=== PATIENT | male | born 1980 | race Caucasian/White ===

== ENCOUNTER 2017-02-22 18:20 | Emergency (ER) | payer OTHER ==
--- NOTE | 2017-02-22 18:40 | ERNOTE ---
Head Injury HPI - General Injury to: head Time Seen by Provider: 02/22/17 18:20 Source: patient Exam Limitations: no limitations - Immun/Allergies/Home Medications Allergies/Adverse Reactions: Allergies Allergy/AdvReac Type Severity Reaction Status Date / Time Penicillins Allergy Verified 02/22/17 18:30 Home Medications: HOME MEDICATIONS Metoprolol Succinate 5 mg PO DAILY 02/22/17 [Last Taken Unknown] Omeprazole 10 mg PO DAILY 02/22/17 [Last Taken Unknown] - History of Present Illness Narrative: Patient was putting two horses away when they started to act up as he was in the middle. He got knocked over and fell on his face in the dirt and the horse kicked him in the back of the head. He was dazed but did not loose consciousness , was able to get up, calm the horses down and ambulated into the ER, no other injury. He rates his headache at 5/10, no nausea, no dizziness Occurred: just prior to arrival Location Occurred: home Head Injury Location: occipital Method of Injury: Reports: direct blow Loss of Consciousness: Reports: no loss of consciousness, dazed Associated Symptoms: Reports: denies symptoms Review of Systems - Review of Systems Constitutional: Absent: recent illness, fever Respiratory: Absent: shortness of breath Cardiology: Absent: chest pain Gastrointestinal/Abdominal: Absent: nausea, vomiting, abdominal pain Musculoskeletal: Absent: back pain, neck pain Neurological: Present: headache. Absent: weakness, numbness - Patient's Past Medical History Patient History - Medical: GERD Patient History - Cardiac/Respiratory: Hypertension Patient History - Cancer: No Hx of Cancer Patient History - Surgical Procedures: No surgical history Patient History - Other: None - Social History Living Situations: home Abuse History: No History of abuse Psych History: No pertinent hx Does anyone smoke in the home?: No Smoking Status: Never smoker Alcohol Use: rarely Drug Use: none - Immunizations Immunizations Up to Date: Yes Physical Exam - Physical Exam General Appearance: Present: wd/wn, alert, no apparent distress Eye Exam: Normal inspection: bilateral, PERRL: bilateral Ears, Nose, Throat: Present: normal ENT inspection, other - minimal abrasion and contusion above right eyebrow, no other signs of facial injry, no bony tenderness, over occiput lare curved laceration and underlying hematoma Neck: Present: normal inspection, nontender, supple Respiratory: Present: no respiratory distress, normal breath sounds, no accessory muscle use, chest nontender, lungs clear Cardiovascular/Chest: Present: regular rate, rhythm, no murmur Gastrointestinal/Abdominal: Present: nontender, nondistended, soft Back Exam: Present: normal inspection, normal range of motion, no CVA tenderness , no vertebral tenderness Extremity Exam: Present: normal inspection, non-tender, normal range of motion Neurological Exam: Present: alert, oriented, normal mood/affect, no motor/ sensory deficits Skin Exam: Present: normal color, warm/dry ED Progress - Vital Signs Patient's Vital Signs:: I have reviewed the patient's vital signs. - CT/Ultrasound CT/Ultrasound Narrative: CT head: no acute intracranial findings Procedures Head Anesthesia: Lidocaine w/ Epi Length of Repair/Wound (cm): 4.5 Wound's Depth/Shape: into subcutaneous Wound Explored: to base, no foreign body Wound Intervention: irrigated w/saline Distal NVT: neuro/vasc intact Wound Repaired With: virgie Number of Sutures: 6 Layer Closure: Simple Estimated blood loss (ml): 10 Wound Dressing: sterile dressing applied Complications: Pt rubin procedure well Departure Clinical Impression: Laceration of occipital scalp Qualifiers: Encounter type: initial encounter Qualified Code(s): S01.01XA - Laceration without foreign body of scalp, initial encounter Head injury, acute Qualifiers: Encounter type: initial encounter Qualified Code(s): S09.90XA - Unspecified injury of head, initial encounter - Departure Disposition: Home self-care Condition: Good Instructions: Head Injury, Adult, [id number], Laceration Care, Adult, Easy-to -Read Additional Instructions: have the virgie removed in 10 days, call your doctor for follow up
[2017-02-22 19:30] VITALS: BP 145/97
== END 2017-02-22 19:29 | disposition home or self-care (01) ==
LOC: ER 18:20
PROC: 0JQ00ZZ Repair Scalp Subcutaneous Tissue and Fascia, Open Approach (ICD-10-PCS; principal; 2017-02-22)
DX: S01.01XA Laceration without foreign body of scalp, initial encounter (principal); S09.90XA Unspecified injury of head, initial encounter; K21.9 Gastro-esophageal reflux disease without esophagitis; I10 Essential (primary) hypertension; W55.12XA Struck by horse, initial encounter; Y92.009 Unspecified place in unspecified non-institutional (private) residence as the place of occurrence of the external cause